=== PATIENT | female | born 1985 | race Hispanic/Latino ===

== ENCOUNTER 2022-12-17 09:58 | Emergency (ER) | payer SELFPAY ==
[~2022-12-17] VITALS: Ht 149.9 cm; Wt 64.0 kg
[2022-12-17] VITALS (8 sets, daily range): BP systolic 103–131; BP diastolic 60–86
[~2022-12-17 09:58] MED LIST: CIPRO500 MG OR; LORTAB5 OR
[2022-12-17 10:48] LABS: BASO% 0.3 % (0-3); EOS% 2.9 % (0-8); IMMATURE GRANULOCYTES 0.4 % (0.0-5.0); LYMPH% 35.4 % (15-41); MEAN CELL VOLUME 86.1 fL CALC (80.0-100.0); MEAN CORPUSCULAR HGB 28.5 pG CALC (26.0-32.0); MONO% 4.7 % (2-13); NEUT# 5.31 thou/uL (2.00-7.15); NEUT% 56.3 % (42-76); RED BLOOD COUNT 5.27 mill/uL (4.20-5.60); RED CELL DISTRI WIDTH 12.7 % (11.5-15.5)
[2022-12-17 10:50] LABS: HEMATOCRIT 45.4 % (37.0-47.0)
[2022-12-17 10:59] LABS: ALKALINE PHOSPHATASE 138 u/l (38-126); ANION GAP 24 (6-22 (CALC)); BILIRUBIN, TOTAL 0.3 mg/dL (0.02-1.3); BUN 10 mg/dL (7-17); BUN/CREATININE RATIO 17 (12-20 (CALC)); CARBON DIOXIDE 17 mmol/l (22-30); CHLORIDE 103 mmol/l (95-108); CREATININE 0.6 mg/dL (0.5-1.0); GFR FOR AFR.AMER. > 60 ML/MIN (>=60 (CALC)); GFR OTHER RACES > 60 ML/MIN (>=60 (CALC)); POTASSIUM 3.9 mmol/l (3.5-5.1); SODIUM 140 mmol/l (137-146)
[2022-12-17 11:00] LABS: ALBUMIN 4.9 g/dL (3.2-5.0); SGOT/AST 41 u/l (14-36); TOTAL PROTEIN 9.4 g/dL (6.3-8.2)
[2022-12-17 12:06] LABS: URINE BILIRUBIN - DIPSTICK NEGATIVE (NEGATIVE); URINE BLOOD DIPSTICK NEGATIVE (NEGATIVE); URINE COLOR YELLOW; URINE GLUCOSE - DIPSTICK NEGATIVE (NEGATIVE); URINE KETONE NEGATIVE (NEGATIVE); URINE PROTEIN - DIPSTICK NEGATIVE (NEG-TRACE); URINE SPECIFIC GRAVITY 1.015; URINE UROBILINOGEN - DIPSTICK 0.2 E.U./dL (0.2)
[2022-12-17 12:11] LABS: URINE LEUK ESTERASE MODERATE (NEGATIVE); URINE NITRITE - DIPSTICK NEGATIVE (Negative)
[2022-12-17 12:12] LABS: URINE BACTERIA FEW hpf; URINE EPITHELIAL CELLS FEW EPI/hpf (0-FEW)
[2022-12-17] MEDS ORDERED: MECLIZINE 2525 MG PO (12:56)
== END 2022-12-17 13:02 | disposition home or self-care (01) | DRG 149 ==
LOC: ED 09:58
PROVIDERS: Family Medicine
DX: R42 Dizziness and giddiness (principal)

== ENCOUNTER 2024-06-30 11:38 | Emergency (ER) | payer OTHER ==
[~2024-06-30] VITALS: Ht 149.9 cm; Wt 78.0 kg
[~2024-06-30 11:38] MED LIST changes: +MECLIZINE 2525 MG PO
[2024-06-30] MEDS ORDERED: ACETAMINOPHEN 325 MG/TAB PO ONE (13:40)
[2024-06-30 15:32] VITALS: BP 109/72
== END 2024-06-30 15:30 | disposition home or self-care (01) | DRG 90 ==
LOC: ED 11:38
DX: S06.0X0A Concussion without loss of consciousness, initial encounter (principal); R40.2410 Glasgow coma scale score 13-15, unspecified time; V43.62XA Car passenger injured in collision with other type car in traffic accident, initial encounter